=== PATIENT | female | born 1950 | race Caucasian/White ===

== ENCOUNTER 2016-11-05 19:27 | Inpatient (IN) | payer OTHER ==
[~2016-11-05] VITALS: Ht 152.4 cm; Wt 66.5 kg
[~2016-11-05 19:27] MED LIST: METO25TA56 PO
[2016-11-05] MEDS ORDERED: FUROSEMIDE 40 MG/4 ML VIAL IV STA (20:06)
--- NOTE | 2016-11-05 20:13 | EMERGENCY ROOM VISIT NOTE ---
History Report prepared by Barb: Virgil Herrera Under the Supervision of: Dr. Angela Walker M.D. First contact with patient: 19:50 Chief Complaint: SHORTNESS OF BREATH Stated Complaint: SOB History of Present Illness The patient is a 66 year old female who presents to the Emergency Room with complaints of fluid building up in her abdomen and chest that began one week prior to arrival. She also complains of difficulty breathing secondary to her build up of fluid. The patient states that she would like to have some IV-Lasix , which is what normally works for her when she has experienced this in the past. She noted that she thought she could fill the fluid building up into her neck/throat. The patient has a history of CHF and is on 2 L of Oxygen at home. She denies any vomiting, diarrhea, or recent fevers. Source of History: patient Onset: One week RADIO ANNOUNCER Position: chest Quality: other (Difficulty breathing) Timing: worsening Associated Symptoms: No diarrhea, No fevers, No vomiting Review of Systems See HPI for pertinent positives & negatives. A total of 10 systems reviewed and were otherwise negative. Past Medical & Surgical Medical Problems: (1) chf exac, pulm HTN, EKG changes Family History FH: atrial fibrillation MOTHER FH: stroke MOTHER, Onset:79 Social History Smoking Status: Never Smoker Drug Use: none Marital Status: Housing Status: lives with family Occupation Status: other Current/Historical Medications Scheduled Flecainide (Tambocor), 50 MG PO TID Furosemide (Lasix), 40 MG PO BID Metoprolol Succinate (Metoprolol Succinate ER), 25 MG PO DAILY Oxygen (Oxygen), 2 LITERS NA CONTINOUS Allergies Coded Allergies: No Known Allergies (Unverified , 02/10/14) Physical Exam Vital Signs Date Time Temp Pulse Resp B/P Pulse Ox O2 Delivery O2 Flow Rate FiO2 11/05/16 23:33 73 25 95 Nasal Cannula 3.5 11/05/16 23:28 126/75 11/05/16 23:24 71 11/05/16 23:03 76 28 93 Nasal Cannula 3.5 11/05/16 22:58 101/62 11/05/16 22:38 74 25 95 Nasal Cannula 3.5 11/05/16 22:28 110/79 11/05/16 22:08 75 27 93 Nasal Cannula 3.5 11/05/16 21:59 101/66 11/05/16 21:38 72 27 94 Nasal Cannula 3.5 11/05/16 21:33 72 25 93 Nasal Cannula 3.5 11/05/16 21:29 109/71 11/05/16 21:03 73 27 94 Nasal Cannula 3.5 11/05/16 20:58 113/75 11/05/16 20:33 72 24 93 Nasal Cannula 3.5 11/05/16 20:28 104/71 11/05/16 20:27 72 25 93 Nasal Cannula 3.5 11/05/16 19:58 108/73 11/05/16 19:57 74 24 91 Nasal Cannula 3.0 11/05/16 19:50 94 Nasal Cannula 3.5 11/05/16 19:47 75 11/05/16 19:46 100/71 11/05/16 19:42 91 Nasal Cannula 3.0 11/05/16 19:35 90 Nasal Cannula 2.0 11/05/16 19:35 90 Nasal Cannula 2.0 11/05/16 19:31 36.5 79 20 86 Nasal Cannula 2.0 Physical Exam Vital signs reviewed. General: Chronically ill-appearing, On nasal oxygen. HEENT: No scleral icterus, PERRLA, neck supple. Atraumatic. Cardiovascular: Regular rate and rhythm, no extra sounds. Pulmonary: Breath sounds diminished at the bases bilaterally. Midlung field crackles. Normal work of breathing. Abdomen: Soft, nontender, nondistended, positive bowel sounds. Musculoskeletal: Atraumatic. Mild lower extremity edema. Neurologic: Patient awake alert and oriented x 3, full strength in all 4 extremities. Cranial nerves 2 through 12 grossly intact. Skin: Warm, dry, no rash Medical Decision & Procedures ER Provider Diagnostic Interpretation: X-ray results as stated below per my interpretation and radiologist interpretation. Other radiology results as stated below per my review and radiologist interpretation: SINGLE VIEW CHEST CLINICAL HISTORY: Dyspnea. CHF. FINDINGS: An AP, portable, upright chest radiograph is compared to study dated 01/23/2016 and correlated with chest CT dated 02/13/2014. The examination is degraded by portable technique and patient rotation. The heart appears enlarged and there is atherosclerotic calcification of the thoracic aorta. There is pulmonary vascular congestion. There is a layering right pleural effusion with associated right basilar consolidation. No large left pleural effusion is seen. A large calcified pleural plaque is again noted on the left. No pneumothorax is seen. The skeletal structures are osteopenic. A left shoulder arthroplasty is in place. IMPRESSION: 1. Cardiomegaly with evidence of congestive failure. 2. Moderate right pleural effusion with associated right basilar consolidation. This is similar to several prior examinations and may be chronic. Correlate clinically for evidence of a superimposed infectious or inflammatory pneumonitis. 3. The left lung is grossly clear noting a large calcified pleural plaque. Electronically signed by: Moustapha Sahu M.D. 11/05/2016 8:23 PM Dictated Date/Time: 11/05/2016 8:20 PM Laboratory Results Test 11/05/16 19:50 11/05/16 20:15 11/05/16 23:26 Total Bilirubin 0.5 mg/dl (0.2-1) Direct Bilirubin 0.2 mg/dl (0-0.2) Aspartate Amino Transf (AST/SGOT) 23 U/L (15-37) Alanine Aminotransferase (ALT/SGPT) 27 U/L (12-78) Alkaline Phosphatase 69 U/L (45-117) Total Protein 7.7 gm/dl (6.4-8.2) Albumin 3.1 gm/dl (3.4-5.0) FS-Khi-C-Type Natriuretic Peptide 7125 pg/ml (0-900) Bedside Troponin I 0.010 ng/ml (0-0.045) Laboratory results per my review. Medications Administered Medications (Trade) Dose Ordered Sig/Yannick Route Start Time Stop Time Status Last Admin Dose Admin Furosemide (Lasix Inj) 40 mg NOW STAT IV 11/05/16 20:06 11/05/16 20:10 DC 11/05/16 20:20 40 MG ECG Indication: SOB/dyspnea Rate (beats per minute): 76 Rhythm: normal sinus Findings: RBBB (Incomplete), T-wave inversion (Diffuse), other (RAD) Comparison ECG Date: 01/23/2016 Change: no significant change ED Course 2003: Past medical records reviewed. The patient was evaluated in room A12. A complete history and physical examination was performed. 2005: Ordered Furosemide 40 mg IV. 9: I reevaluated the patient at this time, she is still experiencing her breathing difficulties. 2: I discussed the case with Dr. Marr [facility] Hospitalist at this time , he will evaluate the patient for further treatment. Medical Decision The patient's history was concerning for respiratory difficulties. Differential diagnosis: Etiologies such as infections, reactive airway disease, pneumonia, pneumothorax , COPD, CHF, cardiac ischemia, pulmonary embolism, musculoskeletal, gastrointestinal, as well as others were entertained. This patient was evaluated and appeared to be in no significant distress. IV access was obtained and laboratory work was drawn. The patient was placed on the night monitor and found to be in a normal sinus rhythm. She was resting comfortably on nasal cannula oxygen. Patient's chest x-ray is consistent with congestive changes. She was medicated with IV Lasix 40 mg. Given the patient' s cardiac history and congestive failure with increased O2 requirement, she was evaluated by the hospitalist service for further management. Patient and her are aware of the plan and agree. Consults Time Called: [phone] Consulting Physician: Dr. Justa FLORES Hospitalist Returned Call: [phone] I discussed the case with Dr. Justa FL[facility] at this time, he will evaluate the patient for further treatment. Impression Primary Impression: Congestive heart failure Additional Impression: Hypoxia Scribe Attestation The scribe's documentation has been prepared under my direction and personally reviewed by me in its entirety. I confirm that the note above accurately reflects all work, treatment, procedures, and medical decision making performed by me. Departure Information Dispostion Being Evaluated By Hospitalist Referrals No Doctor, Assigned (PCP) Patient Instructions My [facility] Problem Qualifiers
[2016-11-05 20:16] LABS: BASO % 0.6 %; BASO ABS # 0.04 K/uL (0-0.2); COMPLETE YES; EOS % 1.3 %; IG% 0.3 %; LYMPH % 14.7 %; LYMPH ABS # 0.99 K/uL (1.2-3.4); MEAN CELL VOLUME 96.1 fL (80-100); MEAN CORPUSCULAR HEMOGLOBIN 32.5 pg (25-34); MEAN CORPUSCULAR HGB CONC 33.8 g/dl (32-36); MEAN PLATELET VOLUME 9.6 fL (7.4-10.4); NEUT % 72.1 %; PLATELET COUNT 224 K/uL (130-400); RED BLOOD COUNT 4.06 M/uL (4.2-5.4); WHITE BLOOD COUNT 6.75 K/uL (4.8-10.8)
[2016-11-05 20:23] LABS: BUN/CREATININE RATIO 18.3 (10-20); CALCIUM 8.3 mg/dl (8.5-10.1); CREATININE 1.4 mg/dl (0.60-1.20); MAGNESIUM 2.3 mg/dl (1.8-2.4); POTASSIUM 4.4 mmol/L (3.5-5.1)
--- NOTE | 2016-11-05 20:25 | DIAGNOSTIC IMAGING REPORT ---
SINGLE VIEW CHEST CLINICAL HISTORY: Dyspnea. CHF. FINDINGS: An AP, portable, upright chest radiograph is compared to study dated 01/23/2016 and correlated with chest CT dated 02/13/2014. The examination is degraded by portable technique and patient rotation. The heart appears enlarged and there is atherosclerotic calcification of the thoracic aorta. There is pulmonary vascular congestion. There is a layering right pleural effusion with associated right basilar consolidation. No large left pleural effusion is seen. A large calcified pleural plaque is again noted on the left. No pneumothorax is seen. The skeletal structures are osteopenic. A left shoulder arthroplasty is in place. IMPRESSION: 1. Cardiomegaly with evidence of congestive failure. 2. Moderate right pleural effusion with associated right basilar consolidation. This is similar to several prior examinations and may be chronic. Correlate clinically for evidence of a superimposed infectious or inflammatory pneumonitis. 3. The left lung is grossly clear noting a large calcified pleural plaque. Electronically signed by: Moustapha Sahu M.D. 11/05/2016 8:23 PM Dictated Date/Time: 11/05/2016 8:20 PM
[2016-11-05 20:28] LABS: CKMB/CK RATIO 3.2 (0-3.0)
[2016-11-05 20:33] LABS: POINT OF CARE TROPONIN I 0.01 ng/ml (0-0.045)
[2016-11-06] VITALS (7 sets, daily range): BP systolic 93–106; BP diastolic 55–71; PULSE 66–76; TEMP 36.4–36.8; O2SAT 91–97; Ht 152.4 cm; Wt 66.5 kg
[2016-11-06] MEDS ORDERED: ZOLPIDEM TARTRATE 5 MG TAB PO PRN ×2 (01:15→01:30)
[2016-11-06] MEDS ORDERED: NITROGLYCERIN 0.4 MG SL PER TAB CHARGE SL PRN (01:15)
[2016-11-06] MEDS ORDERED: ACETAMINOPHEN 325 MG TAB PO PRN ×2 (01:15→01:30)
[2016-11-06] MEDS ORDERED: FLECAINIDE ACETATE 100 MG TAB PO STA (01:28)
[2016-11-06] MEDS ORDERED: MoRPHine SULFATE 4 MG/ML 1 ML CARP\\VIAL IV PRN (01:30)
[2016-11-06] MEDS ORDERED: PROMETHAZINE HCL INJ 12.5 MG in SODIUM CHLORIDE 0.9% 50ML 50 ML IV PRN (01:30)
[2016-11-06] MEDS ORDERED: MoRPHine SULFATE 2 MG/ML CARP IV PRN (01:30)
[2016-11-06] MEDS ORDERED: DiphenhydrAMINE HCL 50 MG/ML VIAL IV PRN (01:30)
[2016-11-06] MEDS ORDERED: LORAZEPAM 2 MG/ML 1 ML VIAL IV PRN (01:30)
[2016-11-06] MEDS ORDERED: MAGNESIUM HYDROXIDE SUSP 30 ML UDC PO PRN (01:30)
[2016-11-06] MEDS ORDERED: ONDANSETRON INJ 2 MG/ML 2 ML VIAL IV PRN ×2 (01:30)
[2016-11-06] MEDS ORDERED: ALUMINUM/MAGNESIUM/SIMETH (MAALOX MAX) 30 ML UDC PO PRN (01:30)
[2016-11-06] MEDS ORDERED: BISACODYL 10 MG SUPP PR PRN (01:30)
[2016-11-06 02:07] LABS: CKMB/CK RATIO 3.4 (0-3.0)
--- NOTE | 2016-11-06 04:55 | History and Physical ---
History & Physical Date & Time of Service: Nov 06, 2016 at 04:44 Chief Complaint: Chf, Hypoxia Primary Care Physician: Adriana Saini M.D. History of Present Illness Source: patient, spouse The patient is a 66-year-old female who presents to the emergency department with complaint of fluid building up in her legs and chest, with shortness of breath, that began 1 week prior to arrival. She reports that IV Lasix usually works for her, and requested that in the ED upon arrival. She does have a history of CHF, and is chronically on 2 L of oxygen at home. She denies any recent dietary change such as increased sodium. Family History FH: atrial fibrillation MOTHER FH: stroke MOTHER, Onset:79 Social History Smoking Status: Never Smoker Drug Use: none Marital Status: Housing status: lives with family Occupational Status: retired, other Multi-Drug Resistant Organisms History of MDRO: No Allergies Coded Allergies: No Known Allergies (Unverified , 02/10/14) Home Medications Scheduled Flecainide (Tambocor), 50 MG PO TID Furosemide (Lasix), 40 MG PO BID Metoprolol Succinate (Metoprolol Succinate ER), 25 MG PO DAILY Oxygen (Oxygen), 2 LITERS NA CONTINOUS Review of Systems The patient denies chest pain, palpitations, vision change, hearing change, sore throat, fevers, chills, sweats, weight change, fatigue, nausea, vomiting, abdominal pain, pelvic pain, blood in urine or stool, dysuria, urinary frequency or urgency, lightheadedness, dizziness, headache, memory loss, rash, abnormal bruising or bleeding, imbalance, focal or generalized weakness, arthralgias or myalgias, back or neck pain, night sweats, or allergy symptoms. The review of systems is otherwise negative other than for that already noted above, and at least 10 systems have been reviewed. Physical Exam Vital Signs Date Time Temp Pulse Resp B/P Pulse Ox O2 Delivery O2 Flow Rate FiO2 11/06/16 04:06 Nasal Cannula 2.0 11/06/16 03:50 36.7 66 18 93/55 97 Nasal Cannula 2.5 11/06/16 01:00 Nasal Cannula 2.0 11/06/16 00:54 36.4 76 20 98/70 92 Nasal Cannula 2.0 11/06/16 00:03 70 21 98 Nasal Cannula 3.5 11/05/16 23:58 111/86 11/05/16 23:33 73 25 95 Nasal Cannula 3.5 11/05/16 23:28 126/75 11/05/16 23:24 71 11/05/16 23:03 76 28 93 Nasal Cannula 3.5 11/05/16 22:58 101/62 11/05/16 22:38 74 25 95 Nasal Cannula 3.5 11/05/16 22:28 110/79 11/05/16 22:08 75 27 93 Nasal Cannula 3.5 11/05/16 21:59 101/66 11/05/16 21:38 72 27 94 Nasal Cannula 3.5 11/05/16 21:33 72 25 93 Nasal Cannula 3.5 11/05/16 21:29 109/71 11/05/16 21:03 73 27 94 Nasal Cannula 3.5 11/05/16 20:58 113/75 11/05/16 20:33 72 24 93 Nasal Cannula 3.5 11/05/16 20:28 104/71 11/05/16 20:27 72 25 93 Nasal Cannula 3.5 11/05/16 19:58 108/73 11/05/16 19:57 74 24 91 Nasal Cannula 3.0 11/05/16 19:50 94 Nasal Cannula 3.5 11/05/16 19:47 75 11/05/16 19:46 100/71 11/05/16 19:42 91 Nasal Cannula 3.0 11/05/16 19:35 90 Nasal Cannula 2.0 11/05/16 19:35 90 Nasal Cannula 2.0 11/05/16 19:31 36.5 79 20 86 Nasal Cannula 2.0 The patient is awake, well-developed and adequately nourished, alert and oriented 3, normocephalic and atraumatic, lying in bed and in no acute distress. HEENT--PERRL, EOMI, mucous membranes moist, and oropharynx normal. Neck--supple, no JVD or bruits, thyroid normal, trachea midline, no adenopathy. Heart--normal S1 and S2, no extra beats, no murmurs, rubs or gallops. Lungs--crackles at the bases to one third up bilaterally, no respiratory distress, no accessory muscle use. Abdomen--normal bowel sounds and soft, nontender and nondistended, no hernias or masses, no organomegaly. Extremities--no cyanosis, clubbing. There is bilateral 2-3+ pitting edema. There are good distal pulses b/l. Dermatologic--normal skin turgor, normal color, warm and dry, no abnormal lymph nodes, no rash. Neurologic--cranial nerves II through XII grossly intact, motor and sensory examination normal. Rheumatologic--normal range of motion, nontender, muscles and joints. Psychiatric--normal affect. Diagnostics Laboratory Results Results Past 24 Hours Test 11/05/16 19:50 11/05/16 20:15 11/05/16 23:26 11/06/16 01:24 Range/Units White Blood Count 6.75 4.8-10.8 K/uL Red Blood Count 4.06 4.2-5.4 M/uL Hemoglobin 13.2 12.0-16.0 g/dL Hematocrit 39.0 37-47 % Mean Corpuscular Volume 96.1 80-100 fL Mean Corpuscular Hemoglobin 32.5 25-34 pg Mean Corpuscular Hemoglobin Concent 33.8 32-36 g/dl Platelet Count 224 130-400 K/uL Mean Platelet Volume 9.6 7.4-10.4 fL Neutrophils (%) (Auto) 72.1 % Lymphocytes (%) (Auto) 14.7 % Monocytes (%) (Auto) 11.0 % Eosinophils (%) (Auto) 1.3 % Basophils (%) (Auto) 0.6 % Neutrophils # (Auto) 4.87 1.4-6.5 K/uL Lymphocytes # (Auto) 0.99 1.2-3.4 K/uL Monocytes # (Auto) 0.74 0.11-0.59 K/uL Eosinophils # (Auto) 0.09 0-0.5 K/uL Basophils # (Auto) 0.04 0-0.2 K/uL RDW Standard Deviation 53.2 36.4-46.3 fL RDW Coefficient of Variation 15.1 11.5-14.5 % Immature Granulocyte % (Auto) 0.3 % Immature Granulocyte # (Auto) 0.02 0.00-0.02 K/uL Sodium Level 139 136-145 mmol/L Potassium Level 4.4 3.5-5.1 mmol/L Chloride Level 98 98-107 mmol/L Carbon Dioxide Level 31 21-32 mmol/L Anion Gap 10.0 3-11 mmol/L Blood Urea Nitrogen 26 7-18 mg/dl Creatinine 1.40 0.60-1.20 mg/dl Est Creatinine Clear Calc Drug Dose 35.3 ml/min Estimated GFR () 45.9 Estimated GFR (Non- 39.6 BUN/Creatinine Ratio 18.3 10-20 Random Glucose 111 70-99 mg/dl Calcium Level 8.3 8.5-10.1 mg/dl Magnesium Level 2.3 1.8-2.4 mg/dl Total Bilirubin 0.5 0.2-1 mg/dl Direct Bilirubin 0.2 0-0.2 mg/dl Aspartate Amino Transf (AST/SGOT) 23 15-37 U/L Alanine Aminotransferase (ALT/SGPT) 27 12-78 U/L Alkaline Phosphatase 69 45-117 U/L Total Creatine Kinase 41 35 26-192 U/L Creatine Kinase MB 1.3 1.2 0.5-3.6 ng/ml Creatine Kinase MB Ratio 3.2 3.4 0-3.0 Total Protein 7.7 6.4-8.2 gm/dl Albumin 3.1 3.4-5.0 gm/dl Bedside Troponin I 0.010 0.010 0-0.045 ng/ml WG-Pit-O-Type Natriuretic Peptide 7125 0-900 pg/ml Troponin I < 0.015 0-0.045 ng/ml Diagnostic Radiology Patient Name: MIRIAN MCRAE Unit Number: [id number] Dictated: 11/05/162019 Transcribed: 11/05/162019 EV Printed Date/Time: [~ rep prt dt]/[~ rep prt tm] [~ rep ct labl] - [~ rep ct ivnm] [facility] [place] [address] Dictated: 11/05/162019 Transcribed: 11/05/162019 EV Printed Date/Time: [~ rep prt dt]/[~ rep prt tm] [~ rep ct labl] - [~ rep ct ivnm] CLINICAL HISTORY: Dyspnea. CHF. FINDINGS: An AP, portable, upright chest radiograph is compared to study dated 01/23/2016 and correlated with chest CT dated 02/13/2014. The examination is degraded by portable technique and patient rotation. The heart appears enlarged and there is atherosclerotic calcification of the thoracic aorta. There is pulmonary vascular congestion. There is a layering right pleural effusion with associated right basilar consolidation. No large left pleural effusion is seen. A large calcified pleural plaque is again noted on the left. No pneumothorax is seen. The skeletal structures are osteopenic. A left shoulder arthroplasty is in place. IMPRESSION: 1. Cardiomegaly with evidence of congestive failure. 2. Moderate right pleural effusion with associated right basilar consolidation. This is similar to several prior examinations and may be chronic. Correlate clinically for evidence of a superimposed infectious or inflammatory pneumonitis. 3. The left lung is grossly clear noting a large calcified pleural plaque. Electronically signed by: Moustapha Sahu M.D. 11/05/2016 8:23 PM Dictated Date/Time: 11/05/2016 8:20 PM The status of this report is Signed. Draft = Not yet reviewed or approved by Radiologist. Signed = Reviewed and approved by Radiologist. <AttendingPhy></AttendingPhy> <FamilyPhy>No Doctor, Assigned</FamilyPhy> < PrimaryPhy>No Doctor, Assigned</PrimaryPhy> <UnitNumber>[id number]</UnitNumber> <VisitNumber>[id number]</VisitNumber> <PatientName>MIRIAN MCRAE</ PatientName> <DateOfBirth>1950</DateOfBirth> <Location>[facility]</Location> < ServiceDate>11/05/16</ServiceDate> <MNE>ESINDI</MNE> <OrderingPhy>Angela Walker M.D.</OrderingPhy> <OrderingPhyMNE>f rep ord dr yi</OrderingPhyMNE> < DictatingPhyMNE>f rep dict dr yi</DictatingPhyMNE> <CCListMNE>f rep ct kassidy</ CCListMNE> <AdmittingPhyMNE>f pt admit dr yi</AdmittingPhyMNE> <AttendingPhyMNE >f pt attend dr yi</AttendingPhyMNE> <ConsultingPhyMNE>f pt consult dr yi</ConsultingPhyMNE> <FamilyPhyMNE>f pt fam dr yi</FamilyPhyMNE> <OtherPhyMNE>f pt other dr yi</OtherPhyMNE> < PrimaryPhyMNE>f pt prim care dr yi</PrimaryPhyMNE> <ReferringPhyMNE>f pt referring dr yi</ReferringPhyMNE> EKG EKG shows normal sinus rhythm at [address], [address] depression T-wave inversions in leads 2, 3 , aVF and V3 similar to 01/23/2016, with worsening ST depression and T-wave inversions in leads V2 and V4 through V6 Impression Assessment and Plan Acute exacerbation of CHF, with probable ischemic origin due to new EKG changes. Patient will be admitted to the telemetry unit, and is already received Lasix 40 mg IV in the emergency department. She was reluctant to stay in the hospital, but does agree to stay until she can be seen by Dr. Garcia in the a.m. We'll follow serial cardiac enzymes, cardiac rhythm monitoring, and repeat 2-D echocardiogram with Dopplers. Continue flecainide 50 mg by mouth 3 times a day, metoprolol succinate ER 25 mg by mouth daily and furosemide 40 mg by mouth twice a day. We'll follow serial basic metabolic panel and magnesium levels. Level of Care Telemetry Advanced Directives Existing Advance Directive: Yes Existing Living Will: Yes Existing Power of Catapult And Arresting Gear Officer: Yes Resuscitation Status FULL RESUSCITATION VTE Prophylaxis VTE Risk Assessment Done? Y/N: Yes Risk Level: Moderate
[2016-11-06] MEDS: METOPROLOL SUCC 25MG EXT REL TAB PO SCH (08:30)
[2016-11-06] MEDS: FUROSEMIDE 40 MG TAB PO SCH ×2 (08:31→15:40)
[2016-11-06] MEDS: DOCUSATE SODIUM 100 MG CAP PO SCH ×2 (08:31→19:29)
[2016-11-06] MEDS: FLECAINIDE ACETATE 100 MG TAB PO SCH ×3 (08:31→19:30)
[2016-11-06 10:14] LABS: CKMB/CK RATIO 3.6 (0-3.0)
--- NOTE | 2016-11-06 11:47 | Cardiology Consultation ---
Cardiology Consultation Date of Consultation: Nov 06, 2016. Requesting Physician: Dr. Marr Reason for Consultation: SOB Pt evaluation today including: conversation w/ patient, physical exam, lab review, review of studies, review of inpatient medication list, conversation w/ attending History of Present Illness This is a very pleasant 63-year-old female with a history significant for severe pulmonary hypertension, chronic right pleural effusion, and a pulmonary nodule. She is taken care of Dr. Oliva (pulmonology) for her pulmonary issues. She has been on supplemental oxygen for several years and uses 2 liters per nasal cannula. She had a right sided cardiac catheterization performed at [facility] on 01/25/2016, this showed severe pulmonary hypertension with suprasystemic pulmonary artery pressures and a normal right atrial pressure. Her symptoms had been stable for quite some time . However more recently she has had progressive edema and shortness of breath (over several weeks) and although she tried to take extra Lasix her symptoms worsened and she came to the emergency room last evening and was admitted. She denies angina or any type of chest pain with any exertion or at rest, she does describe a chest fullness which sounds like it is related to her shortness of breath. She fell and injured her left shoulder and underwent Left Shoulder Hemiarthroplasty on 02/12/2013. Post operatively she had significant blood loss as well as tachycardia. Her tachycardia in retrospect has been present for years , it was a regular tachycardia at a rate of 140 BPM on telemetry (while under stress) and slowed but did not terminate with adenosine. It did terminate abruptly on its own however (after addition of diltiazem) after about 12 hours. That may or may not have been related to the diltiazem, she had another episode subsequently lasting about 3 1/2 hours with abrupt onset and termination as before. This does replicate her clinical arrhythmia prior to admission. She was aware of the arrhythmia but did not suffer hemodynamic consequence. She is maintained on flecainide for the arrhythmia, she has not had much difficulty with it (at least symptomatically) recently. Past Medical/Surgical History Severe Pulmonary HTN SVT controlled with Flecanide Granulomatous lung disease, Yarbrough's lung? Chronic Right pleural effusion- 2011 - Thoracentesis in 2011 x1 Left shoulder injury Family History FH: atrial fibrillation MOTHER FH: stroke MOTHER, Onset:79 Social History Smoking Status: Never Smoker History of Alcohol Use: No Review of Systems Constitutional: No fever, No weakness, No weight loss Respiratory: + dyspnea on exertion, + see HPI, + shortness of breath Cardiac: + edema, No PND, No chest pain, No orthopnea, No palpitations Abdomen: No GI bleeding, No diarrhea, No nausea, No pain, No vomiting Female : No problem reported Neurologic: No balance problems, No numbness/tingling, No paralysis, No weakness Heme: No abnormal bleeding/bruising, No clotting problems Endo: No fatigue Skin: No problem reported All Other Systems: Reviewed and Negative Allergies Coded Allergies: No Known Allergies (Unverified , 02/10/14) Medications Current Inpatient Medications Medications (Trade) Dose Ordered Sig/Yannick Route Start Time Stop Time Status Last Admin Dose Admin Zolpidem Tartrate (Ambien Tab) 5 mg HSZ PRN PO 11/06/16 01:15 12/06/16 01:14 Nitroglycerin (Nitrostat Tab) 0.4 mg UD PRN SL 11/06/16 01:15 12/06/16 01:14 Flecainide Acetate (Tambocor Tab) 50 mg TID PO 11/06/16 09:00 12/06/16 08:59 11/06/16 08:31 50 MG Furosemide (Lasix tab) 40 mg BID17 PO 11/06/16 09:00 12/06/16 08:59 11/06/16 08:31 40 MG Metoprolol Succinate (Toprol Xl Tab) 25 mg DAILY PO 11/06/16 09:00 12/06/16 08:59 11/06/16 08:30 25 MG Ondansetron HCl (Zofran Inj) 4 mg Q6H PRN IV 11/06/16 01:30 12/06/16 01:29 Lorazepam (Ativan Inj) 0.5 mg Q4H PRN IV 11/06/16 01:30 12/06/16 01:29 Acetaminophen (Tylenol Tab) 650 mg Q4H PRN PO 11/06/16 01:30 12/06/16 01:29 Magnesium Hydroxide (Milk Of Magnesia Susp) 30 ml Q6H PRN PO 11/06/16 01:30 12/06/16 01:29 Bisacodyl (Dulcolax Supp) 10 mg DAILY PRN [place] 11/06/16 01:30 12/06/16 01:29 Diphenhydramine HCl (Benadryl Inj) 25 mg Q4H PRN IV 11/06/16 01:30 12/06/16 01:29 Al Hydrox/Mg Hydrox/ Simethicone 15 ml 15 ml Q4H PRN PO 11/06/16 01:30 12/06/16 01:29 Promethazine HCl/ Sodium Chloride (Phenergan Inj/ Nss 50ml) 50.5 ml @ 202 mls/hr Q4H PRN IV 11/06/16 01:30 12/06/16 01:29 Docusate Sodium (coLACE CAP) 100 mg BID PO 11/06/16 09:00 12/06/16 08:59 11/06/16 08:31 100 MG Morphine Sulfate (MoRPHine SULFATE INJ) 2 mg Q2H PRN IV 11/06/16 01:30 11/20/16 01:29 Morphine Sulfate (MoRPHine SULFATE INJ) 4 mg Q2H PRN IV 11/06/16 01:30 11/20/16 01:29 Physical Exam Vital Signs Past 12 Hours Date Time Temp Pulse Resp B/P Pulse Ox O2 Delivery O2 Flow Rate FiO2 11/06/16 08:00 Nasal Cannula 2.0 11/06/16 08:00 36.8 68 18 101/63 91 3.0 11/06/16 04:06 Nasal Cannula 2.0 11/06/16 03:50 36.7 66 18 93/55 97 Nasal Cannula 2.5 11/06/16 01:00 Nasal Cannula 2.0 11/06/16 00:54 36.4 76 20 98/70 92 Nasal Cannula 2.0 11/06/16 00:03 70 21 98 Nasal Cannula 3.5 11/05/16 23:58 111/86 11/05/16 23:33 73 25 95 Nasal Cannula 3.5 11/05/16 23:28 126/75 11/05/16 23:24 71 Constitutional: General Apperance: heathly-appearing Level of Distress: mild distress Psychiatric: Mental Status: active & alert Head: normocephalic Eyes: EOM: EOMI ENMT: normal ENT inspection, hearing grossly normal Neck: supple, no masses Lungs: Respiratory effort: good air movement Auscultation: breath sounds normal, no wheezing Cardiovascular: Heart Auscultation: RRR, no murmurs, no rubs, no gallops, pertinent finding (Prominent S2) Peripheral Pulses: Bruits: none appreciated Abdomen: Bowel Sounds: normal Inspection & Palpation: soft, no tenderness, guarding & rebound, no masses Musculoskeletal: normal strength (5/5 throughout) Extremities: edema (+2 bilateral) Neurologic: Cranial Nerves: grossly intact Sensation: grossly intact Data Laboratory Results: Last 24 Hours Test 11/05/16 19:50 11/05/16 20:15 11/05/16 23:26 11/06/16 01:24 White Blood Count 6.75 K/uL Red Blood Count 4.06 M/uL Hemoglobin 13.2 g/dL Hematocrit 39.0 % Mean Corpuscular Volume 96.1 fL Mean Corpuscular Hemoglobin 32.5 pg Mean Corpuscular Hemoglobin Concent 33.8 g/dl Platelet Count 224 K/uL Mean Platelet Volume 9.6 fL Neutrophils (%) (Auto) 72.1 % Lymphocytes (%) (Auto) 14.7 % Monocytes (%) (Auto) 11.0 % Eosinophils (%) (Auto) 1.3 % Basophils (%) (Auto) 0.6 % Neutrophils # (Auto) 4.87 K/uL Lymphocytes # (Auto) 0.99 K/uL Monocytes # (Auto) 0.74 K/uL Eosinophils # (Auto) 0.09 K/uL Basophils # (Auto) 0.04 K/uL RDW Standard Deviation 53.2 fL RDW Coefficient of Variation 15.1 % Immature Granulocyte % (Auto) 0.3 % Immature Granulocyte # (Auto) 0.02 K/uL Sodium Level 139 mmol/L Potassium Level 4.4 mmol/L Chloride Level 98 mmol/L Carbon Dioxide Level 31 mmol/L Anion Gap 10.0 mmol/L Blood Urea Nitrogen 26 mg/dl Creatinine 1.40 mg/dl Est Creatinine Clear Calc Drug Dose 35.3 ml/min Estimated GFR () 45.9 Estimated GFR (Non- 39.6 BUN/Creatinine Ratio 18.3 Random Glucose 111 mg/dl Calcium Level 8.3 mg/dl Magnesium Level 2.3 mg/dl Total Bilirubin 0.5 mg/dl Direct Bilirubin 0.2 mg/dl Aspartate Amino Transf (AST/SGOT) 23 U/L Alanine Aminotransferase (ALT/SGPT) 27 U/L Alkaline Phosphatase 69 U/L Total Creatine Kinase 41 U/L 35 U/L Creatine Kinase MB 1.3 ng/ml 1.2 ng/ml Creatine Kinase MB Ratio 3.2 3.4 Total Protein 7.7 gm/dl Albumin 3.1 gm/dl Bedside Troponin I 0.010 ng/ml 0.010 ng/ml [id number] Natriuretic Peptide 7125 pg/ml Troponin I < 0.015 ng/ml Test 11/06/16 09:16 Total Creatine Kinase 39 U/L Creatine Kinase MB 1.4 ng/ml Creatine Kinase MB Ratio 3.6 Troponin I < 0.015 ng/ml An electrocardiogram today shows sinus rhythm at 75 bpm with right axis deviation consistent with right ventricular hypertrophy and inferior as well as anterior T-wave inversion. This is unchanged from a year ago. An echocardiogram done in 2013 shows low normal left ventricular function, another echocardiogram done 11/19/2015 showed mild left ventricular dysfunction with an estimated ejection fraction of 45-50%. Findings consistent with right ventricular volume and pressure overload as well as severe pulmonary hypertension. Telemetry reviewed: Sinus rhythm, no arrhythmia Assessment & Plan #1. Shortness of breath: The primary reason for her shortness of breath is her pulmonary hypertension, but I cannot exclude a contribution of heart failure. In the past she has not had a lot of findings of left sided failure but she has not had an echocardiogram for almost a year. She is hypoxic with exercise but that may be her underlying lung disease. I would continue to diurese and that may help with her breathing. #2. Edema: She has primarily right sided heart failure, however she has had an exacerbation and I would continue to diuresis. We may run into difficulties with an elevated creatinine but I would still try to do so for now. We probably can't do too much more. #3. Severe pulmonary hypertension: There is probably little we can do other than supportive care. #4. Supraventricular arrhythmia: She remains on flecainide at least symptomatically this appears to be under control. Has not had any further episodes on telemetry. I would continue with the flecainide. Thank you for allowing me to participate in her care.
--- NOTE | 2016-11-06 11:50 | Hospitalist Progress Note ---
Hospitalist Progress Note Date of Service Nov 06, 2016. Subjective Pt evaluation today including: conversation w/ patient, physical exam, chart review, lab review, review of studies Pain: None PO Intake: Good Voiding: no voiding problems Pt was seen and examined this morning. She has no acute complaints. Reports swelling in her legs has decreased, and that her breathing is at baseline. She denies feeling sob with ambulation moreso than at her baseline. Chronically wears 2 L O2, and is currently on this without any sob/dyspnea. She received 1 dose IV lasix in the ED last night and was placed back on her home medication dose of 40 mg PO BID this morning. She is refusing invasive testing at this time , including an Echo (she understands this is an ultrasound and noninvasive), and would like to speak with Dr. Garcia. Her serial cardiac enzymes have all been negative and she would like to leave today. Constitutional: No chills, No fever, No sweats ENT: No nasal symptoms, No sore throat, No tinnitus Respiratory: No cough, No dyspnea at rest, No shortness of breath, No sputum , No wheezing Cardiovascular: No chest pain, No palpitations Abdomen: No constipation, No diarrhea, No nausea, No pain, No see HPI, No vomiting Musculoskeletal: + swelling, No joint pain, No muscle pain Female : No dysuria Neurologic: No numbness/tingling, No weakness Skin: No rash Objective Vital Signs Date Time Temp Pulse Resp B/P Pulse Ox O2 Delivery O2 Flow Rate FiO2 11/06/16 04:06 Nasal Cannula 2.0 11/06/16 03:50 36.7 66 18 93/55 97 Nasal Cannula 2.5 11/06/16 01:00 Nasal Cannula 2.0 11/06/16 00:54 36.4 76 20 98/70 92 Nasal Cannula 2.0 11/06/16 00:03 70 21 98 Nasal Cannula 3.5 11/05/16 23:58 111/86 11/05/16 23:33 73 25 95 Nasal Cannula 3.5 11/05/16 23:28 126/75 11/05/16 23:24 71 11/05/16 23:03 76 28 93 Nasal Cannula 3.5 11/05/16 22:58 101/62 11/05/16 22:38 74 25 95 Nasal Cannula 3.5 11/05/16 22:28 110/79 11/05/16 22:08 75 27 93 Nasal Cannula 3.5 11/05/16 21:59 101/66 11/05/16 21:38 72 27 94 Nasal Cannula 3.5 11/05/16 21:33 72 25 93 Nasal Cannula 3.5 11/05/16 21:29 109/71 11/05/16 21:03 73 27 94 Nasal Cannula 3.5 11/05/16 20:58 113/75 11/05/16 20:33 72 24 93 Nasal Cannula 3.5 11/05/16 20:28 104/71 11/05/16 20:27 72 25 93 Nasal Cannula 3.5 11/05/16 19:58 108/73 11/05/16 19:57 74 24 91 Nasal Cannula 3.0 11/05/16 19:50 94 Nasal Cannula 3.5 11/05/16 19:47 75 11/05/16 19:46 100/71 11/05/16 19:42 91 Nasal Cannula 3.0 11/05/16 19:35 90 Nasal Cannula 2.0 11/05/16 19:35 90 Nasal Cannula 2.0 11/05/16 19:31 36.5 79 20 86 Nasal Cannula 2.0 Physical Exam General Appearance: WD/WN, no apparent distress Eyes: PERRL, EOMI ENT: hearing grossly normal, pharynx normal Neck: + JVD Respiratory/Chest: chest non-tender, no respiratory distress, + pertinent finding (wearing 2 L O2 via NC, + diminished breath sounds a R base. ) Cardiovascular: regular rate, rhythm, no murmur, + JVD Abdomen: normal bowel sounds, non tender, soft Extremities: non-tender, no calf tenderness, + pedal edema (+1 pitting edema, up to mid tibial region, equal bilaterally.) Neurologic/Psychiatric: alert, normal mood/affect Skin: normal color, warm/dry Laboratory Results Last 24 Hours Test 11/05/16 19:50 11/05/16 20:15 11/05/16 23:26 11/06/16 01:24 White Blood Count 6.75 K/uL Red Blood Count 4.06 M/uL Hemoglobin 13.2 g/dL Hematocrit 39.0 % Mean Corpuscular Volume 96.1 fL Mean Corpuscular Hemoglobin 32.5 pg Mean Corpuscular Hemoglobin Concent 33.8 g/dl Platelet Count 224 K/uL Mean Platelet Volume 9.6 fL Neutrophils (%) (Auto) 72.1 % Lymphocytes (%) (Auto) 14.7 % Monocytes (%) (Auto) 11.0 % Eosinophils (%) (Auto) 1.3 % Basophils (%) (Auto) 0.6 % Neutrophils # (Auto) 4.87 K/uL Lymphocytes # (Auto) 0.99 K/uL Monocytes # (Auto) 0.74 K/uL Eosinophils # (Auto) 0.09 K/uL Basophils # (Auto) 0.04 K/uL RDW Standard Deviation 53.2 fL RDW Coefficient of Variation 15.1 % Immature Granulocyte % (Auto) 0.3 % Immature Granulocyte # (Auto) 0.02 K/uL Sodium Level 139 mmol/L Potassium Level 4.4 mmol/L Chloride Level 98 mmol/L Carbon Dioxide Level 31 mmol/L Anion Gap 10.0 mmol/L Blood Urea Nitrogen 26 mg/dl Creatinine 1.40 mg/dl Est Creatinine Clear Calc Drug Dose 35.3 ml/min Estimated GFR () 45.9 Estimated GFR (Non- 39.6 BUN/Creatinine Ratio 18.3 Random Glucose 111 mg/dl Calcium Level 8.3 mg/dl Magnesium Level 2.3 mg/dl Total Bilirubin 0.5 mg/dl Direct Bilirubin 0.2 mg/dl Aspartate Amino Transf (AST/SGOT) 23 U/L Alanine Aminotransferase (ALT/SGPT) 27 U/L Alkaline Phosphatase 69 U/L Total Creatine Kinase 41 U/L 35 U/L Creatine Kinase MB 1.3 ng/ml 1.2 ng/ml Creatine Kinase MB Ratio 3.2 3.4 Total Protein 7.7 gm/dl Albumin 3.1 gm/dl Bedside Troponin I 0.010 ng/ml 0.010 ng/ml [id number] Natriuretic Peptide 7125 pg/ml Troponin I < 0.015 ng/ml Assessment and Plan This is a 66 yo F with PMHx of CHF, with complaint of fluid building up in her legs and chest, with shortness of breath, that began 1 week prior to arrival Acute on Chronic CHF exacerbation, unknown if systolic or diastolic - NT-Pro-BNP was elevated at 7125 at time of admission last evening - Recieved 40 mg IV lasix in the ED, continue with 40 mg BID PO - ECHO ordered, although the patient is requesting to see Dr. Cortes prior to this as she does not want to go through invasive procedures. Discussion was held regarding echo being an ultrasound, but she is still hesitant to have this done, and is requesting to leave since her breathing and swelling has improved back to her baseline. - Troponin and CKMB x 3 sets all negative - Strict I/Os, out 900mL overnight - Daily weights - Continue flecainide 50 mg TID - Cont metoprolol succinate ER 25 mg - Dopplers BLE pending - CXR 11/05/16 IMPRESSION: 1. Cardiomegaly with evidence of congestive failure. 2. Moderate right pleural effusion with associated right basilar consolidation. This is similar to several prior examinations and may be chronic. Correlate clinically for evidence of a superimposed infectious or inflammatory pneumonitis. 3. The left lung is grossly clear noting a large calcified pleural plaque. ELI - Secondary to volume overload- likely will improve with gentle diuresis - Baseline Cr. =0.9 in Sep 2016 - Received Lasix 40 mg IV last night - Cont Lasix 40 mg PO BID R pleural effusion with basilar consolidation - Pleural effusion likely to improve with diuresis, monitor - can consider repeat CXR if the patient gets worse - her sx are improved at this point. CODE STATUS: FULL CODE Disposition: From home, likely today or tomorrow depending on cardiology recommendations/ patient decision on workup.
[2016-11-06] MEDS ORDERED: PERFLUTREN LIPID MICROSPHERE (DEFINITY) IV ONE (14:14)
[2016-11-06 18:16] LABS: BLOOD UREA NITROGEN 28 mg/dl (7-18); BUN/CREATININE RATIO 23.3 (10-20); CALCIUM 8.7 mg/dl (8.5-10.1); CARBON DIOXIDE 31 mmol/L (21-32); CHLORIDE 96 mmol/L (98-107); GLUCOSE 163 mg/dl (70-99); POTASSIUM 4.5 mmol/L (3.5-5.1); SODIUM 139 mmol/L (136-145)
[2016-11-06 18:20] LABS: CKMB/CK RATIO 2.6 (0-3.0)
[2016-11-07 03:32] VITALS: BP 91/55; PULSE 62; TEMP 36.7; O2SAT 99
[2016-11-07 06:12] LABS: BASO % 0.7 %; BASO ABS # 0.04 K/uL (0-0.2); COMPLETE YES; EOS % 2.3 %; HEMATOCRIT 36.7 % (37-47); IG% 0.4 %; LYMPH % 18.5 %; LYMPH ABS # 1.04 K/uL (1.2-3.4); MEAN CELL VOLUME 95.1 fL (80-100); MEAN CORPUSCULAR HEMOGLOBIN 31.6 pg (25-34); MEAN CORPUSCULAR HGB CONC 33.2 g/dl (32-36); MEAN PLATELET VOLUME 9.7 fL (7.4-10.4); MONO % 12.7 %; NEUT % 65.4 %; PLATELET COUNT 202 K/uL (130-400); RED BLOOD COUNT 3.86 M/uL (4.2-5.4); WHITE BLOOD COUNT 5.61 K/uL (4.8-10.8)
[2016-11-07 06:24] LABS: INR 1.1 (0.9-1.1); PROTHROMBIN TIME (PATIENT) 12.3 SECONDS (9.0-12.0)
[2016-11-07 07:00] LABS: BUN/CREATININE RATIO 26.6 (10-20); CALCIUM 8.5 mg/dl (8.5-10.1); CREATININE 0.83 mg/dl (0.60-1.20); MAGNESIUM 2.3 mg/dl (1.8-2.4); POTASSIUM 3.8 mmol/L (3.5-5.1)
[2016-11-07 07:57] VITALS: BP 103/66; PULSE 66; TEMP 36.6; O2SAT 90
[2016-11-07] MEDS: METOPROLOL SUCC 25MG EXT REL TAB PO SCH (08:33)
[2016-11-07] MEDS: FLECAINIDE ACETATE 100 MG TAB PO SCH ×2 (08:33→13:56)
[2016-11-07] MEDS: FUROSEMIDE 40 MG TAB PO SCH (08:33)
[2016-11-07] MEDS: DOCUSATE SODIUM 100 MG CAP PO SCH (08:34)
[2016-11-07 11:48] VITALS: BP 96/64; PULSE 85; TEMP 36.3; O2SAT 92
[2016-11-07 12:41] VITALS: BP 96/64; PULSE 85; TEMP 36.3; O2SAT 92
--- NOTE | 2016-11-07 12:49 | Cardiology Follow-Up ---
Subjective Date of Service: Nov 07, 2016. Pt evaluation today including: conversation w/ patient, physical exam, lab review, review of studies, review of inpatient medication list History of Present Illness This is a very pleasant 63-year-old female with a history significant for severe pulmonary hypertension, chronic right pleural effusion, and a pulmonary nodule. She is taken care of Dr. Oliva (pulmonology) for her pulmonary issues. She has been on supplemental oxygen for several years and uses 2 liters per nasal cannula. She had a right sided cardiac catheterization performed at [facility] on 01/25/2016, this showed severe pulmonary hypertension with suprasystemic pulmonary artery pressures and a normal right atrial pressure. Her symptoms had been stable for quite some time . However more recently she has had progressive edema and shortness of breath (over several weeks) and although she tried to take extra Lasix her symptoms worsened and she came to the emergency room last evening and was admitted. She denies angina or any type of chest pain with any exertion or at rest, she does describe a chest fullness which sounds like it is related to her shortness of breath. She fell and injured her left shoulder and underwent Left Shoulder Hemiarthroplasty on 02/12/2013. Post operatively she had significant blood loss as well as tachycardia. Her tachycardia in retrospect has been present for years , it was a regular tachycardia at a rate of 140 BPM on telemetry (while under stress) and slowed but did not terminate with adenosine. It did terminate abruptly on its own however (after addition of diltiazem) after about 12 hours. That may or may not have been related to the diltiazem, she had another episode subsequently lasting about 3 1/2 hours with abrupt onset and termination as before. This does replicate her clinical arrhythmia prior to admission. She was aware of the arrhythmia but did not suffer hemodynamic consequence. She is maintained on flecainide for the arrhythmia, she has not had much difficulty with it (at least symptomatically) recently. Since admission she has been diuresis, she feels very well and feels that she is back to baseline. She notes that her edema is markedly improved. She has no complaints today. Social History Smoking Status: Never Smoker History of Alcohol Use: No Review of Systems Respiratory: No cough, No dyspnea at rest, No shortness of breath, No sputum, No wheezing Cardiac: No chest pain, No palpitations Medications Cardiovascular: Item Value Date Time Simeoncainide Acetate 50 mg 11/06/16 0900 (Tambocor Tab) TID/PO 11/07/16 0833 Furosemide 40 mg 11/06/16 0900 (Lasix tab) BID17/PO 11/07/16 08 Metoprolol 25 mg 11/06/16 0900 Succinate DAILY/PO 11/07/16 08 (Toprol Xl Tab) Objective Vital Signs Past 12 Hours Date Time Temp Pulse Resp B/P Pulse Ox O2 Delivery O2 Flow Rate FiO2 11/07/16 12:00 Nasal Cannula 2.0 11/07/16 11:48 36.3 85 18 96/64 92 Nasal Cannula 3.0 11/07/16 08:00 Nasal Cannula 2.0 11/07/16 07:57 36.6 66 16 103/66 90 Nasal Cannula 3.0 11/07/16 04:00 Nasal Cannula 2.0 11/07/16 03:32 36.7 62 17 91/55 99 Nasal Cannula 2.0 Last Recorded Weight-Kilograms: 66.500 Intake & Output 8-Hour Column 11/06/16 11/07/16 11/07/16 16:00 00:00 08:00 Intake Total 500 ml 500 ml 100 ml Output Total 300 ml 650 ml Balance 500 ml 200 ml -550 ml 24-Hour Column 11/07/16 08:00 Intake Total 1100 ml Output Total 950 ml Balance 150 ml Physical Exam Constitutional: General Apperance: heathly-appearing Level of Distress: mild distress Lungs: Respiratory effort: good air movement Auscultation: breath sounds normal, no wheezing Cardiovascular: Heart Auscultation: RRR, no murmurs, no rubs, no gallops, pertinent finding (Prominent S2) Peripheral Pulses: Bruits: none appreciated Extremities: edema (trace bilateral) Data Laboratory Results: Last 24 Hours Test 11/06/16 17:40 11/07/16 05:00 Sodium Level 139 mmol/L 142 mmol/L Potassium Level 4.5 mmol/L 3.8 mmol/L Chloride Level 96 mmol/L 99 mmol/L Carbon Dioxide Level 31 mmol/L 34 mmol/L Anion Gap 12.0 mmol/L 9.0 mmol/L Blood Urea Nitrogen 28 mg/dl 22 mg/dl Creatinine 1.20 mg/dl 0.83 mg/dl Est Creatinine Clear Calc Drug Dose 40.2 ml/min 58.0 ml/min Estimated GFR () 55.3 86.4 Estimated GFR (Non- 47.7 74.5 BUN/Creatinine Ratio 23.3 26.6 Random Glucose 163 mg/dl 72 mg/dl Calcium Level 8.7 mg/dl 8.5 mg/dl Total Creatine Kinase 34 U/L Creatine Kinase MB 0.9 ng/ml Creatine Kinase MB Ratio 2.6 Troponin I < 0.015 ng/ml White Blood Count 5.61 K/uL Red Blood Count 3.86 M/uL Hemoglobin 12.2 g/dL Hematocrit 36.7 % Mean Corpuscular Volume 95.1 fL Mean Corpuscular Hemoglobin 31.6 pg Mean Corpuscular Hemoglobin Concent 33.2 g/dl Platelet Count 202 K/uL Mean Platelet Volume 9.7 fL Neutrophils (%) (Auto) 65.4 % Lymphocytes (%) (Auto) 18.5 % Monocytes (%) (Auto) 12.7 % Eosinophils (%) (Auto) 2.3 % Basophils (%) (Auto) 0.7 % Neutrophils # (Auto) 3.67 K/uL Lymphocytes # (Auto) 1.04 K/uL Monocytes # (Auto) 0.71 K/uL Eosinophils # (Auto) 0.13 K/uL Basophils # (Auto) 0.04 K/uL RDW Standard Deviation 52.0 fL RDW Coefficient of Variation 15.1 % Immature Granulocyte % (Auto) 0.4 % Immature Granulocyte # (Auto) 0.02 K/uL Prothrombin Time 12.3 SECONDS Prothromb Time International Ratio 1.1 Activated Partial Thromboplast Time 25.4 SECONDS Partial Thromboplastin Ratio 1.0 Magnesium Level 2.3 mg/dl Telemetry reviewed, sinus rhythm with no significant arrhythmia. Assessment and Plan #1. Shortness of breath: The primary reason for her shortness of breath is her pulmonary hypertension, but I cannot exclude a contribution of heart failure. In the past she has not had a lot of findings of left sided failure and although her echocardiogram is not officially read on preliminary review it is not appreciably different than before. She is hypoxic with exercise but that may be her underlying lung disease. I would maintain her fluid status about where it is, she seems to be euhydrated. #2. Edema: She has primarily right sided heart failure, however she has had an exacerbation but corrected fairly quickly. There is not an obvious reason, however I would not change her medications to much based on this event. I would recommend discharging her on the same medications she had, she is to watch her weight closely for the next 3 or 4 days and if it starts to climb we can either add Zaroxolyn to her schedule or just increase her Lasix. She has an appointment with me in November which should be acceptable. #3. Severe pulmonary hypertension: There is probably little we can do other than supportive care. #4. Supraventricular arrhythmia: She remains on flecainide at least symptomatically this appears to be under control. Has not had any further episodes on telemetry. I would continue with the flecainide. Thank you for allowing me to participate in her care.
--- NOTE | 2016-11-07 14:07 | Discharge Instructions ---
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 Instructions / Follow-Up Instructions / Follow-Up You were admitted with hypoxia ( low oxygen) which was found to be due to volume overload. This was caused by an acute exacerbation of chronic combined type Congestive heart failure. You were treated with intravenous Lasix to help reduce the amount of fluid in your body. You breathing and swelling improved. Cardiology was consulted and an Echocardiogram of your heart was completed. You are being discharged to home today. Continue taking your medications as above. Follow up with your Primary Care Provider within 1 week. Current Hospital Diet Patient's current hospital diet: AHA Diet (Heart Healthy) Discharge Diet Recommended Diet: AHA Diet (Heart Healthy) Procedures Procedures Performed: Echocardiogram Pending Studies Studies pending at discharge: no Laboratory Results Last 24 Hours Test 11/06/16 17:40 11/07/16 05:00 Sodium Level 139 mmol/L 142 mmol/L Potassium Level 4.5 mmol/L 3.8 mmol/L Chloride Level 96 mmol/L 99 mmol/L Carbon Dioxide Level 31 mmol/L 34 mmol/L Anion Gap 12.0 mmol/L 9.0 mmol/L Blood Urea Nitrogen 28 mg/dl 22 mg/dl Creatinine 1.20 mg/dl 0.83 mg/dl Est Creatinine Clear Calc Drug Dose 40.2 ml/min 58.0 ml/min Estimated GFR () 55.3 86.4 Estimated GFR (Non- 47.7 74.5 BUN/Creatinine Ratio 23.3 26.6 Random Glucose 163 mg/dl 72 mg/dl Calcium Level 8.7 mg/dl 8.5 mg/dl Total Creatine Kinase 34 U/L Creatine Kinase MB 0.9 ng/ml Creatine Kinase MB Ratio 2.6 Troponin I < 0.015 ng/ml White Blood Count 5.61 K/uL Red Blood Count 3.86 M/uL Hemoglobin 12.2 g/dL Hematocrit 36.7 % Mean Corpuscular Volume 95.1 fL Mean Corpuscular Hemoglobin 31.6 pg Mean Corpuscular Hemoglobin Concent 33.2 g/dl Platelet Count 202 K/uL Mean Platelet Volume 9.7 fL Neutrophils (%) (Auto) 65.4 % Lymphocytes (%) (Auto) 18.5 % Monocytes (%) (Auto) 12.7 % Eosinophils (%) (Auto) 2.3 % Basophils (%) (Auto) 0.7 % Neutrophils # (Auto) 3.67 K/uL Lymphocytes # (Auto) 1.04 K/uL Monocytes # (Auto) 0.71 K/uL Eosinophils # (Auto) 0.13 K/uL Basophils # (Auto) 0.04 K/uL RDW Standard Deviation 52.0 fL RDW Coefficient of Variation 15.1 % Immature Granulocyte % (Auto) 0.4 % Immature Granulocyte # (Auto) 0.02 K/uL Prothrombin Time 12.3 SECONDS Prothromb Time International Ratio 1.1 Activated Partial Thromboplast Time 25.4 SECONDS Partial Thromboplastin Ratio 1.0 Magnesium Level 2.3 mg/dl Medical Emergencies . Who to Call and When: Medical Emergencies: If at any time you feel your situation is an emergency, please call 911 immediately. . Non-Emergent Contact Non-Emergency issues call your: Primary Care Provider Call Non-Emergent contact if: you have a fever, your pain is not controlled You develop chest pain, shortness of breath, increased swelling of your legs, palpitations, flutter in your chest, or if you have other concerns about your health. . Past History Medical & Surgical History: (1) Congestive heart failure . "Provider Documentation" section prepared by Ludy Rowan. VTE Core Measure Inpt VTE Proph given/why not?: TPool Stockings, SCD's
--- NOTE | 2016-11-07 14:12 | Discharge Summary ---
Discharge Summary Admission Date: Nov 05, 2016 at 23:52 Discharge Date: Nov 07, 2016 Principal Diagnosis: Acute exacerbation of CHF Problems/Secondary Diagnoses: ELI, R pleural effusion, shortness of breath Procedures: CXR 11/05/16 IMPRESSION: 1. Cardiomegaly with evidence of congestive failure. 2. Moderate right pleural effusion with associated right basilar consolidation. This is similar to several prior examinations and may be chronic. Correlate clinically for evidence of a superimposed infectious or inflammatory pneumonitis. 3. The left lung is grossly clear noting a large calcified pleural plaque. Echocardiogram 11/07/16 Consultations: Cardiology Medication Reconciliation Continued Medications: Flecainide (Tambocor) 50 Mg Tab 50 MG PO TID, TAB Furosemide (Lasix) 40 Mg Tab 40 MG PO BID, TAB Metoprolol Succinate (Metoprolol Succinate ER) 25 Mg Tabcr 25 MG PO DAILY Oxygen (Oxygen) Gas 2 LITERS NA CONTINOUS Referrals At Discharge Follow up Referrals: Clinical Academic Allergist Referral - Within 1-2 Weeks with Travis Garcia M.D. Physician Referral - Within 1 Week with Adriana Saini M.D. Discharge Exam The patient was seen and examined this morning. Pt reports her breathing is improved. She is doing well today and anticipating discharge. She denies chest pain, pressure or tightness. Pt admits to some nasal congestion which is new. She normally uses a humidifier at home, and this room has hot air blowing out of the vent beside her bed. She does have humidified oxygen on currently. She reports congestion improved once she was up and out of bed. She has no other complaints today. Review of Systems: Constitutional: No chills, No fever, No sweats ENT: No nasal symptoms, No sore throat, No tinnitus, No unusual epistaxis Respiratory: No cough, No dyspnea at rest, No dyspnea on exertion, No shortness of breath, No sputum, No wheezing Cardiovascular: No chest pain, No orthopnea, No palpitations Abdomen: No constipation, No diarrhea, No nausea, No pain, No vomiting Musculoskeletal: No calf pain, No joint pain Genitourinary - Female: No dysuria Neurologic: No numbness/tingling, No weakness Integumentary: No itch, No rash Physical Exam: General Appearance: WD/WN, no apparent distress Eyes: PERRL, EOMI ENT: TMs normal, pharynx normal Neck: no JVD Respiratory/Chest: no respiratory distress, no accessory muscle use, + pertinent finding (Diminished breath sounds at right base. No adventitious breath sounds appreciated. ) Cardiovascular: regular rate, rhythm, no murmur, normal peripheral pulses Abdomen / GI: normal bowel sounds, non tender, soft Extremities: no calf tenderness, + pedal edema (1+ pitting edema in BLE, improved since yesterday) Neurologic/Psychiatric: alert, normal mood/affect, oriented x 3 Skin: normal color, warm/dry Hospital Course H&P per Dr. Nieves Source: patient, spouse The patient is a 66-year-old female who presents to the emergency department with complaint of fluid building up in her legs and chest, with shortness of breath, that began 1 week prior to arrival. She reports that IV Lasix usually works for her, and requested that in the ED upon arrival. She does have a history of CHF, and is chronically on 2 L of oxygen at home. She denies any recent dietary change such as increased sodium. PE: The patient is awake, well-developed and adequately nourished, alert and oriented 3, normocephalic and atraumatic, lying in bed and in no acute distress. HEENT--PERRL, EOMI, mucous membranes moist, and oropharynx normal. Neck--supple, no JVD or bruits, thyroid normal, trachea midline, no adenopathy. Heart--normal S1 and S2, no extra beats, no murmurs, rubs or gallops. Lungs--crackles at the bases to one third up bilaterally, no respiratory distress, no accessory muscle use. Abdomen--normal bowel sounds and soft, nontender and nondistended, no hernias or masses, no organomegaly. Extremities--no cyanosis, clubbing. There is bilateral 2-3+ pitting edema. There are good distal pulses b/l. Dermatologic--normal skin turgor, normal color, warm and dry, no abnormal lymph nodes, no rash. Neurologic--cranial nerves II through XII grossly intact, motor and sensory examination normal. Rheumatologic--normal range of motion, nontender, muscles and joints. Psychiatric--normal affect. Hospital Course This is a 66 yo F with PMHx of CHF, with complaint of fluid building up in her legs and chest, with shortness of breath, that began 1 week prior to arrival Acute on Chronic CHF exacerbation, unknown if systolic or diastolic - NT-Pro-BNP was elevated at 7125 at time of admission last evening - Received 40 mg IV lasix in the ED, continue with 40 mg BID PO - ECHO ordered and completed:although not officially read at this time cardiology report notes no significant difference from the previous echo. - Troponin and CKMB x 3 sets all negative - Strict I/Os, with good outs overnight. - Daily weights - Continue flecainide 50 mg TID - Cont metoprolol succinate ER 25 mg - Dopplers BLE pending - CXR 11/05/16 IMPRESSION: 1. Cardiomegaly with evidence of congestive failure. 2. Moderate right pleural effusion with associated right basilar consolidation. This is similar to several prior examinations and may be chronic. Correlate clinically for evidence of a superimposed infectious or inflammatory pneumonitis. 3. The left lung is grossly clear noting a large calcified pleural plaque. ELI - Secondary to volume overload- likely will improve with gentle diuresis - Baseline Cr. =0.9 in Sep 2016 - Received Lasix 40 x 1 in the ED initially, then was switched to oral - Cont Lasix 40 mg PO BID R pleural effusion with basilar consolidation - Pleural effusion likely to improve with diuresis, monitor - can consider repeat CXR if the patient gets worse - her sx are improved at this point. CODE STATUS: FULL CODE Disposition: Discharge to home today. Total Time Spent: Greater than 30 minutes This includes examination of the patient, discharge planning, medication reconciliation, and communication with other providers. Discharge Instructions Please refer to the electronic Patient Visit Report (Discharge Instructions) for additional information. Follow-Up Follow up with your Primary Care Provider within 1 week. Additional Copies To Adriana Saini M.D.
--- NOTE | 2016-11-07 17:16 | ECHOCARDIOGRAM REPORT ---
*NOTICE TO RECEIVING REPUBLICAN AGENCY This information is strictly Confidential and protected under [place] law. [place] law prohibits you from making any further disclosure of this information unless further disclosure is expressly permitted by the written consent of the person to whom it pertains or is authorized by law. A general authorization for the release of medical or other information is not sufficient for this purpose. Hospital accepts no responsibility if the information is made available to any other person, INCLUDING THE PATIENT. Interpretation Summary * Name: MIRIAN MCRAE Study Date: 11/06/2016 01:43 PM BP: 102/66 mmHg * Patient Location: C.2T\S\S229\S\2 HR: 75 * : 1950 (M/d/yyyy) Gender: Female Height: 60 in * Age: 66 yrs Ethnicity: CA Weight: 146 lb * Ordering Physician: Travis Garcia * Referring Physician: Adriana Saini * Performed By: Dea Cotto RDCS * * Reason For Study: CHF * BSA: 1.6 m2 * History: CHF * Severe right ventricular systolic dysfunction, severe right ventricular dilatation, severe right atrial dilatation. * Right ventricular pressure/volume overload. * Severe pulmonary hypertension. * Cor pulmonale. * Normal left ventricular systolic function. * Moderate tricuspid regurgitation. * Trace mitral and aortic regurgitation. * -- Conclusions -- * Aortic valve sclerosis mild, without significant aortic valvular stenosis. Procedure Details * A contrast injection of Definity was performed to improve assessment of LV function. * Contrast was injected into an intravenous site in the left arm. * One vial of Definity ultrasound contrast was diluted in normal saline to a total volume of 10 ml. A total of '1' ml of solution was administered during imaging. * Lot # [id number] of Definity utilized for procedure. * Expiration date 1 APR 07. * The attending nurse who injected the contrast agent was ERIKA SIMON RN. Left Ventricle * The left ventricle is normal in size. * There is normal left ventricular wall thickness. * Ejection Fraction = 55-60%. * Flattened septum is consistent with RV pressure/volume overload. Right Ventricle * The right ventricle is moderate to severely dilated. * The right ventricular systolic function is severely reduced. Atria * The left atrial size is normal. * The right atrium is severely dilated. Mitral Valve * The mitral valve is normal. * There is trace mitral regurgitation. Tricuspid Valve * The tricuspid valve is normal. * There is moderate tricuspid regurgitation. * Right ventricular systolic pressure is elevated at >60mmHg. Aortic Valve * The aortic valve opens well. * The aortic valve is trileaflet. * Aortic valve sclerosis mild, without significant aortic valvular stenosis. * Aortic stenosis is absent. * Trace aortic regurgitation. Pulmonic Valve * The pulmonic valve is not well visualized. * There is no significant pulmonary regurgitation. Great Vessels * The aortic root is normal size. Pericardium/Pleural * There is no pericardial effusion. Great Vessels * The inferior vena cava is moderately dilated. MMode 2D Measurements and Calculations IVSd 0.93 cm IVSs 1.2 cm LVIDd 3.6 cm LVIDs 2.3 cm LVPWd 1.1 cm LVPWs 1.2 cm IVS/LVPW 0.86 FS 35.3 % EDV(Teich) 54.8 ml ESV(Teich) 18.9 ml EF(Teich) 65.6 % EDV(cubed) 47.1 ml ESV(cubed) 12.8 ml EF(cubed) 72.9 % % IVS thick 32.2 % % LVPW thick 13.7 % LV mass(C)d 109.5 grams LV mass(C)dI 67.1 grams/m\S\2 LV mass(C)s 81.9 grams LV mass(C)sI 50.2 grams/m\S\2 SV(Teich) 35.9 ml SI(Teich) 22.0 ml/m\S\2 SV(cubed) 34.3 ml SI(cubed) 21.0 ml/m\S\2 Ao root diam 3.1 cm Ao root area 7.4 cm\S\2 LA dimension 2.4 cm LA/Ao 0.79 LVAd ap4 17.7 cm\S\2 LVLd ap4 6.6 cm EDV(MOD-sp4) 40.3 ml EDV(sp4-el) 40.0 ml LVAs ap4 12.1 cm\S\2 LVLs ap4 5.8 cm ESV(MOD-sp4) 20.7 ml ESV(sp4-el) 21.4 ml EF(MOD-sp4) 48.7 % EF(sp4-el) 46.6 % LVAd ap2 17.6 cm\S\2 LVLd ap2 6.0 cm EDV(MOD-sp2) 46.1 ml EDV(sp2-el) 43.7 ml LVAs ap2 12.8 cm\S\2 LVLs ap2 5.3 cm ESV(MOD-sp2) 27.2 ml ESV(sp2-el) 26.1 ml EF(MOD-sp2) 41.0 % EF(sp2-el) 40.4 % LVLd %diff -100 % EDV(MOD-bp) 44.7 ml LVLs %diff -9.70 % ESV(MOD-bp) 24.5 ml EF(MOD-bp) 45.2 % SV(MOD-sp4) 19.7 ml SI(MOD-sp4) 12.1 ml/m\S\2 SV(MOD-sp2) 18.9 ml SI(MOD-sp2) 11.6 ml/m\S\2 SV(MOD-bp) 20.2 ml SI(MOD-bp) 12.4 ml/m\S\2 SV(sp4-el) 18.6 ml SI(sp4-el) 11.4 ml/m\S\2 SV(sp2-el) 17.6 ml SI(sp2-el) 10.8 ml/m\S\2 Doppler Measurements and Calculations MV E max oleksandr 64.5 cm/sec MV A max oleksandr 61.9 cm/sec MV E/A 1.0 MV dec time 0.25 sec Ao V2 max 100.1 cm/sec Ao max PG 4.0 mmHg Ao max PG (full) 2.7 mmHg LV V1 max PG 1.4 mmHg LV V1 max 58.1 cm/sec TR max oleksandr 464.2 cm/sec
--- NOTE | 2016-11-09 05:03 | EDITING REQUIRED CODING QUERY ---
CODING QUERY To promote full compliance with coding requirements relating to patient care, provider participation is requested in all cases of bicycle rental clerk uncertainty. Please assist us with the question(s) below: Dear Dr. Eduardo, Medical Coders are not allowed to code using the abbreviation "ELI" as it isn't recognized as an official abbreviation. Please clarify "ELI" below. Medical documentation: ELI - Secondary to volume overload- likely will improve with gentle diuresis - Baseline Cr. =0.9 in Sep 2016 - Received Lasix 40 x 1 in the ED initially, then was switched to oral - Cont Lasix 40 mg PO BID Coding Question(s): ELI? ( x ) Acute Kidney Injury ( ) Acute Renal Failure ( ) Acute Renal Insufficiency ( ) Other: Please Explain Physician's Response(s): Thank you your time. Zenaida Haynes [facility] Principal Diagnosis: "_that condition established after study, to be chiefly responsible for occasioning the admission of the patient to the hospital for care." Co-Existing Principal Diagnosis: "_when two or more diagnoses equally meet the criteria for principal diagnosis as determined by the circumstances of admission, diagnostic work up, and/or therapy provided, and the Alphabetic Index, Tabular List, or another coding guideline does not provide sequencing direction, any one of the diagnoses may be sequenced first." "When the physician has documented what appears to be a current diagnosis in the body of the record, but has not included the diagnosis in the final diagnostic statement, the physician should be asked whether the diagnosis should be added." (Source [facility] 2 QTR90. p3-4)
[2017-03-11] MEDS ORDERED: FRS/40 PO (08:49)
[2017-03-11] MEDS ORDERED: FLEC50TA20 PO (14:35)
[2017-03-11] MEDS ORDERED: OXGN (14:48)
== END 2016-11-07 14:00 | disposition home or self-care (01) | DRG 292 ==
LOC: ENRESERVDT → ENRESERVTM → C.EDB 19:28 → C.2T 23:52
PROVIDERS: ADMIT Hospitalist; ATTEND Hospitalist
DX: I50.9 Heart failure, unspecified (principal); N17.9 Acute kidney failure, unspecified; J90 Pleural effusion, not elsewhere classified; I47.1 Supraventricular tachycardia; E87.70 Fluid overload, unspecified; R09.02 Hypoxemia; I27.2 Other secondary pulmonary hypertension; R91.1 Solitary pulmonary nodule; Z99.81 Dependence on supplemental oxygen

== ENCOUNTER 2016-11-16 05:01 | Emergency (ER) | payer OTHER ==
[~2016-11-16] VITALS: Ht 152.4 cm; Wt 68.5 kg
[2016-11-16 05:06] VITALS: TEMP 36.8; Ht 152.4 cm; Wt 68.5 kg
[2016-11-16 05:17] VITALS: O2SAT 95
[2016-11-16] MEDS ORDERED: ALBUT/IPRATROP 3MG/0.5MG NEB 3 ML VIAL INH STA (05:36)
[2016-11-16] MEDS ORDERED: FUROSEMIDE 40 MG/4 ML VIAL IV STA (05:40)
[2016-11-16 06:10] LABS: BASO % 0.3 %; BASO ABS # 0.02 K/uL (0-0.2); COMPLETE YES; EOS % 1.5 %; HEMATOCRIT 37.7 % (37-47); IG% 0.3 %; LYMPH % 12.3 %; MEAN CELL VOLUME 94.7 fL (80-100); MEAN CORPUSCULAR HEMOGLOBIN 31.4 pg (25-34); MEAN CORPUSCULAR HGB CONC 33.2 g/dl (32-36); MEAN PLATELET VOLUME 9.1 fL (7.4-10.4); MONO % 9.6 %; PLATELET COUNT 223 K/uL (130-400); RED BLOOD COUNT 3.98 M/uL (4.2-5.4)
--- NOTE | 2016-11-16 06:10 | EMERGENCY ROOM VISIT NOTE ---
History Report prepared by Barb: Arlin Haywood Under the Supervision of: Dr. Angela Walker M.D. First contact with patient: 05:14 Chief Complaint: CONGESTION Stated Complaint: BRONCHIAL COUGH,CHEST CONGESTION Nursing Triage Summary: Patient presents to ED for evaluation of chest congestion, dry cough, and hypoxia that began Sunday. Patient recently d/c from here after a week long stay for "fluid." Normally wears 2L O2 at all times. History of Present Illness The patient is a 66 year old female who presents to the Emergency Room with complaints of worsening chest congestion for the past 6 days. She reports dry cough and shortness of breath. She denies any chest pain. The patient is on Lasix. She notes increased swelling to her lower extremities. She was recently discharged from the hospital after a week-long stay for "fluid." She saw her PCP 3 days ago for her new symptoms and was started on an antibiotic. Her symptoms were not improving so they changed her antibiotic yesterday. She is on 2L of O2 all the time. Source of History: patient Onset: 6 days ago Position: chest Quality: other (congestion) Timing: worsening Modifying Factors (Relieving): oxygen Associated Symptoms: + SOB, No chest pain Note: Pt notes increased swelling to lower extremities. Review of Systems See HPI for pertinent positives & negatives. A total of 10 systems reviewed and were otherwise negative. Past Medical & Surgical Medical Problems: (1) chf exac, pulm HTN, EKG changes Family History FH: atrial fibrillation MOTHER FH: stroke MOTHER, Onset:79 Social History Smoking Status: Never Smoker Drug Use: none Marital Status: Housing Status: lives with family Occupation Status: retired, other Current/Historical Medications Scheduled Flecainide (Tambocor), 50 MG PO TID Furosemide (Lasix), 40 MG PO BID Metoprolol Succinate (Metoprolol Succinate ER), 25 MG PO DAILY Oxygen (Oxygen), 2 LITERS NA CONTINOUS Scheduled PRN Albuterol Sulf (Proventil 0.083% 2.5MG/3ML), 2.5 MG INH every 4 hours PRN for Cough Allergies Coded Allergies: No Known Allergies (Unverified , 02/10/14) Physical Exam Vital Signs Date Time Temp Pulse Resp B/P Pulse Ox O2 Delivery O2 Flow Rate FiO2 11/16/16 07:15 78 22 110/72 92 Nasal Cannula 4.0 11/16/16 06:30 78 22 105/71 96 Nasal Cannula 4.0 11/16/16 06:03 78 11/16/16 05:17 95 Nasal Cannula 4.0 11/16/16 05:17 86 Nasal Cannula 2.5 11/16/16 05:06 36.8 78 18 109/72 89 Nasal Cannula 2.5 Physical Exam Vital signs reviewed. General: Well-appearing 66-year-old female, in no significant distress. On n/c oxygen HEENT: No scleral icterus, PERRLA, neck supple. Atraumatic. Cardiovascular: Regular rate and rhythm, no extra sounds. Pulmonary: Diminished breath sounds bilaterally with low air movement, faint scattered wheezes, normal work of breathing. Moist cough. Abdomen: Soft, nontender, nondistended, positive bowel sounds. Musculoskeletal: Atraumatic, 2+ pitting edema to the bilateral lower extremities distally. Neurologic: Patient awake alert and oriented x 3 Skin: Warm, dry, no rash Medical Decision & Procedures ER Provider Diagnostic Interpretation: Chest x-ray as interpreted by myself reveals intraparenchymal densities, left middle lung field calcification, large right pleural effusion, no significant change from previous. Left shoulder replacement and monitor leads in place. Laboratory Results 11/16/16 06:00 Red Blood Count 3.98, Mean Corpuscular Volume 94.7, Mean Corpuscular Hemoglobin 31.4, Mean Corpuscular Hemoglobin Concent 33.2, Mean Platelet Volume 9.1, Neutrophils (%) (Auto) 76.0, Lymphocytes (%) (Auto) 12.3, Monocytes (%) (Auto) 9.6, Eosinophils (%) (Auto) 1.5, Basophils (%) (Auto) 0.3, Neutrophils # (Auto) 5.55, Lymphocytes # (Auto) 0.90, Monocytes # (Auto) 0.70, Eosinophils # (Auto) 0.11, Basophils # (Auto) 0.02 11/16/16 06:00 Test 11/16/16 05:57 11/16/16 06:00 11/16/16 06:14 Bedside Troponin I 0.000 ng/ml (0-0.045) EZ-Vhj-V-Type Natriuretic Peptide 5665 pg/ml (0-900) White Blood Count 7.30 K/uL (4.8-10.8) Red Blood Count 3.98 M/uL (4.2-5.4) Hemoglobin 12.5 g/dL (12.0-16.0) Hematocrit 37.7 % (37-47) Mean Corpuscular Volume 94.7 fL (80-100) Mean Corpuscular Hemoglobin 31.4 pg (25-34) Mean Corpuscular Hemoglobin Concent 33.2 g/dl (32-36) Platelet Count 223 K/uL (130-400) Mean Platelet Volume 9.1 fL (7.4-10.4) Neutrophils (%) (Auto) 76.0 % Lymphocytes (%) (Auto) 12.3 % Monocytes (%) (Auto) 9.6 % Eosinophils (%) (Auto) 1.5 % Basophils (%) (Auto) 0.3 % Neutrophils # (Auto) 5.55 K/uL (1.4-6.5) Lymphocytes # (Auto) 0.90 K/uL (1.2-3.4) Monocytes # (Auto) 0.70 K/uL (0.11-0.59) Eosinophils # (Auto) 0.11 K/uL (0-0.5) Basophils # (Auto) 0.02 K/uL (0-0.2) RDW Standard Deviation 51.1 fL (36.4-46.3) RDW Coefficient of Variation 14.5 % (11.5-14.5) Immature Granulocyte % (Auto) 0.3 % Immature Granulocyte # (Auto) 0.02 K/uL (0.00-0.02) Anion Gap 7.0 mmol/L (3-11) Est Creatinine Clear Calc Drug Dose 62.9 ml/min Estimated GFR () 93.1 Estimated GFR (Non- 80.3 BUN/Creatinine Ratio 19.7 (10-20) Calcium Level 8.6 mg/dl (8.5-10.1) Magnesium Level 2.1 mg/dl (1.8-2.4) Total Bilirubin 0.5 mg/dl (0.2-1) Direct Bilirubin 0.2 mg/dl (0-0.2) Aspartate Amino Transf (AST/SGOT) 22 U/L (15-37) Alanine Aminotransferase (ALT/SGPT) 26 U/L (12-78) Alkaline Phosphatase 68 U/L (45-117) Total Creatine Kinase 100 U/L (26-192) Creatine Kinase MB 1.3 ng/ml (0.5-3.6) Creatine Kinase MB Ratio 1.3 (0-3.0) Total Protein 7.6 gm/dl (6.4-8.2) Albumin 3.1 gm/dl (3.4-5.0) Influenza Type A (RT-PCR) Neg for Influ A (NEG) Influenza Type B (RT-PCR) Neg for Influ B (NEG) Laboratory results per my review. Medications Administered Medications (Trade) Dose Ordered Sig/Yannick Route Start Time Stop Time Status Last Admin Dose Admin Albuterol/ Ipratropium (Duoneb) 3 ml NOW STAT INH 11/16/16 05:36 11/16/16 05:39 DC 11/16/16 06:01 3 ML Furosemide (Lasix Inj) 40 mg NOW STAT IV 11/16/16 05:40 11/16/16 05:41 DC 11/16/16 06:02 40 MG ECG Indication: SOB/dyspnea Rate (beats per minute): 74 Rhythm: normal sinus Findings: nonspecific-ST abn, other (right axis deviation, right ventricular hypertrophy) Comparison ECG Date: 11/05/16 Change: no significant change ED Course 0530: Past medical records reviewed. The patient was evaluated in room B10. A complete history and physical examination was performed. 0536: Duoneb 3 ml INH 0540: Lasix 40 mg IV 0649: I reassessed the patient at this time. She is feeling better and resting comfortably. I discussed the results and treatment plan with the patient. I answered all pertaining questions that she had. She expressed understanding and verbalized agreement. The patient will be discharged home. Medical Decision Differential diagnosis: Etiologies such as infections, reactive airway disease, pneumonia, pneumothorax , COPD, CHF, cardiac ischemia, pulmonary embolism, musculoskeletal, gastrointestinal, as well as others were entertained. This pt was evaluated and appeared to be in no distress. IV access was obtained and lab work was drawn. CXR reveals congestive changes and persistent pleural effusion. Pt was given IV lasix 40 mg. EKG reveals no significant changes, no acute ischemia. Lab work reveals neg cardiac enzymes. Pt was reevaluated and had diuresed in the ED. She was advised to increase her Lasix to 60 mg BID for 2 days and then continue her 40 mg BID dosing. She will f/u with her physician this week for reevaluation and return to the ED for worsening of symptoms or any medical concerns. Impression Primary Impression: Congestive heart failure Additional Impressions: Recurrent right pleural effusion Reactive airway disease Scribe Attestation The scribe's documentation has been prepared under my direction and personally reviewed by me in its entirety. I confirm that the note above accurately reflects all work, treatment, procedures, and medical decision making performed by me. Departure Information Dispostion Home / Self-Care Prescriptions Albuterol Sulf (PROVENTIL 0.083% 2.5MG/3ML) 2.5 Mg/3 Ml Nebu 2.5 MG INH every 4 hours Y for Cough, #1 BOX Prov: Angela Walker M.D. 11/16/16 Referrals Adriana Saini M.D. (PCP) Forms HOME CARE DOCUMENTATION FORM, IMPORTANT VISIT INFORMATION Patient Instructions [facility] Additional Instructions Diagnosis: Congestive heart failure, bronchitis, wheezing Increase your Lasix to 60 mg twice daily for 2 days. Continue doxycycline as prescribed. Albuterol nebulizer every 4 hours as needed for wheezing/cough. Follow-up with your primary care physician within the next several days for reevaluation. Return to the ER for worsening of symptoms or any medical concerns. Problem Qualifiers Primary Impression: Congestive heart failure Congestive heart failure type: unspecified congestive heart failure type Congestive heart failure chronicity: acute Qualified Codes: I50.9 - Heart failure, unspecified Additional Impressions: Reactive airway disease Asthma severity: mild intermittent Asthma complication type: with acute exacerbation Qualified Codes: J45.21 - Mild intermittent asthma with (acute) exacerbation
[2016-11-16 06:44] LABS: BUN/CREATININE RATIO 19.7 (10-20); CALCIUM 8.6 mg/dl (8.5-10.1); CREATININE 0.78 mg/dl (0.60-1.20); MAGNESIUM 2.1 mg/dl (1.8-2.4); POTASSIUM 3.5 mmol/L (3.5-5.1)
[2016-11-16 06:49] LABS: CKMB/CK RATIO 1.3 (0-3.0)
[2016-11-16 07:15] VITALS: BP 110/72; PULSE 78; O2SAT 92
[2016-11-16] MEDS ORDERED: ALBINS/ INH (07:23)
--- NOTE | 2016-11-16 07:44 | DIAGNOSTIC IMAGING REPORT ---
CHEST ONE VIEW PORTABLE CLINICAL HISTORY: Cough. Hypoxia. COMPARISON STUDY: Chest radiograph November 05, 2016. FINDINGS: Left shoulder arthroplasty is incidentally noted. Left pleural calcification is chronic. Cardiomediastinal silhouette is stable. There is no pneumothorax. A moderate right pleural effusion with associated right basilar opacity is unchanged. There is pleural vascular congestion with possible mild pulmonary edema. This is also unchanged. IMPRESSION: 1. No change in appearance of the chest. Stable moderate right pleural effusion with right basilar opacity which may reflect atelectasis or consolidation. 2. Pulmonary vascular congestion with suspected mild pulmonary edema. Electronically signed by: Ajay Chang M.D. 11/16/2016 7:43 AM Dictated Date/Time: 11/16/2016 7:40 AM
[2016-11-16 07:54] LABS: INFLUENZA A PCR Neg for Influ A (NEG); INFLUENZA B PCR Neg for Influ B (NEG)
[2017-03-11] MEDS ORDERED: FRS/40 PO (08:49)
[2017-03-11] MEDS ORDERED: FLEC50TA20 PO (14:35)
[2017-03-11] MEDS ORDERED: OXGN (14:48)
== END 2016-11-16 07:31 | disposition home or self-care (01) ==
LOC: C.EDB 05:02
DX: I50.9 Heart failure, unspecified (principal); J90 Pleural effusion, not elsewhere classified; J45.21 Mild intermittent asthma with (acute) exacerbation; Z99.81 Dependence on supplemental oxygen; Z79.899 Other long term (current) drug therapy; Z82.49 Family history of ischemic heart disease and other diseases of the circulatory system

== ENCOUNTER 2017-03-11 19:32 | Emergency (ER) | payer OTHER ==
[~2017-03-11] VITALS: Ht 152.4 cm; Wt 68.5 kg
[~2017-03-11 19:32] MED LIST changes: +ALBINS/ INH; +FLEC50TA20 PO; +FRS/40 PO; -METO25TA56 PO; +OXGN
[2017-03-11 19:36] VITALS: Ht 152.4 cm; Wt 68.5 kg
--- NOTE | 2017-03-11 20:00 | EMERGENCY ROOM VISIT NOTE ---
History Report prepared by Barb: Darnell Leger Under the Supervision of: Dr. Jose Santiago M.D. First contact with patient: 19:48 Chief Complaint: EDEMA TO EXTREMITY Stated Complaint: FLUID OVERLOAD History of Present Illness The patient is a 66 year old female who presents to the Emergency Room with complaints of edema which has worsened today. She has a history of CHF and states she has felt increasingly short of breath and like she is "swelling up all over" for the past few days. She uses 2.5 Liters of Oxygen at home, which provides minimal relief. The patient denies any abdominal pain, chest pain, or fevers. She admits to an occasional feeling of "fullness" in her abdomen, for which she takes TUMS. She has a history of a right sided pleural effusion which has been drained in the past, but keeps returning. She takes 60 mg Lasix twice a day and took an extra 40 mg today at noon, but reports no change in symptoms. Source of History: patient Onset: earlier today Position: other (global) Quality: other (swelling) Timing: worsening Associated Symptoms: + SOB, No abdominal pain, No chest pain, No fevers Review of Systems See HPI for pertinent positives & negatives. A total of 10 systems reviewed and were otherwise negative. Past Medical & Surgical Medical Problems: (1) chf exac, pulm HTN, EKG changes Family History FH: atrial fibrillation MOTHER FH: stroke MOTHER, Onset:79 Social History Smoking Status: Never Smoker Drug Use: none Marital Status: Housing Status: lives with family Occupation Status: retired, other Current/Historical Medications Scheduled Flecainide (Tambocor), 50 MG PO TID Furosemide (Lasix), 60 MG PO BID Metoprolol Succinate (Metoprolol Succinate ER), 25 MG PO DAILY Oxygen (Oxygen), 2.5 LITERS NA CONTINOUS Allergies Coded Allergies: No Known Allergies (Unverified , 02/10/14) Physical Exam Vital Signs Date Time Temp Pulse Resp B/P Pulse Ox O2 Delivery O2 Flow Rate FiO2 03/11/17 21:50 36.7 73 18 112/70 94 03/11/17 21:24 73 18 97/74 94 03/11/17 19:36 36.7 80 20 106/76 91 Nasal Cannula 3.0 Physical Exam GENERAL: Patient is well appearing and in no acute distress. HEENT: No acute trauma, normocephalic atraumatic, mucous membranes moist, no nasal congestion, no scleral icterus. NECK: No stridor, no adenopathy, no meningismus, trachea is midline. LUNGS: Mild shortness of breath. No dyspnea. No wheeze, no rhonchi. HEART: Regular rate and rhythm. No murmurs, rubs, gallops appreciated. ABDOMEN: Mild edema to abdomen. Soft, nontender, bowel sounds positive, no masses appreciated, no peritonitis. BACK: Mild edema to lower back. No midline tenderness, no CVA tenderness EXTREMITIES: 3+ edema bilaterally. Normal motion all extremities, no cyanosis. NEUROLOGIC: Alert and oriented, no acute motor or sensory deficits, no focal weakness, cranial nerves grossly intact. SKIN: No rash, no jaundice, no diaphoresis. Medical Decision & Procedures ER Provider Diagnostic Interpretation: This X-Ray was reviewed and interpreted by myself and the radiologist. CHEST ONE VIEW PORTABLE IMPRESSION: 1. Slight improvement in the mild pulmonary edema and small right pleural effusion. 2. No change in the right basilar densities. This may represent atelectasis or pneumonia. Electronically signed by: Omar Dodd M.D. 03/11/2017 8:31 PM Laboratory Results 03/11/17 20:20 Red Blood Count 3.97, Mean Corpuscular Volume 98.0, Mean Corpuscular Hemoglobin 32.5, Mean Corpuscular Hemoglobin Concent 33.2, Mean Platelet Volume 9.1, Neutrophils (%) (Auto) 69.0, Lymphocytes (%) (Auto) 16.1, Monocytes (%) (Auto) 12.8, Eosinophils (%) (Auto) 1.4, Basophils (%) (Auto) 0.5, Neutrophils # (Auto ) 4.32, Lymphocytes # (Auto) 1.01, Monocytes # (Auto) 0.80, Eosinophils # (Auto ) 0.09, Basophils # (Auto) 0.03 03/11/17 20:20 Test 03/11/17 20:20 White Blood Count 6.26 K/uL (4.8-10.8) Red Blood Count 3.97 M/uL (4.2-5.4) Hemoglobin 12.9 g/dL (12.0-16.0) Hematocrit 38.9 % (37-47) Mean Corpuscular Volume 98.0 fL (80-100) Mean Corpuscular Hemoglobin 32.5 pg (25-34) Mean Corpuscular Hemoglobin Concent 33.2 g/dl (32-36) Platelet Count 205 K/uL (130-400) Mean Platelet Volume 9.1 fL (7.4-10.4) Neutrophils (%) (Auto) 69.0 % Lymphocytes (%) (Auto) 16.1 % Monocytes (%) (Auto) 12.8 % Eosinophils (%) (Auto) 1.4 % Basophils (%) (Auto) 0.5 % Neutrophils # (Auto) 4.32 K/uL (1.4-6.5) Lymphocytes # (Auto) 1.01 K/uL (1.2-3.4) Monocytes # (Auto) 0.80 K/uL (0.11-0.59) Eosinophils # (Auto) 0.09 K/uL (0-0.5) Basophils # (Auto) 0.03 K/uL (0-0.2) RDW Standard Deviation 55.6 fL (36.4-46.3) RDW Coefficient of Variation 15.3 % (11.5-14.5) Immature Granulocyte % (Auto) 0.2 % Immature Granulocyte # (Auto) 0.01 K/uL (0.00-0.02) Anion Gap 3.0 mmol/L (3-11) Est Creatinine Clear Calc Drug Dose 40.9 ml/min Estimated GFR () 55.3 Estimated GFR (Non- 47.7 BUN/Creatinine Ratio 21.3 (10-20) Calcium Level 8.3 mg/dl (8.5-10.1) Troponin I < 0.015 ng/ml (0-0.045) Pro-B-Type Natriuretic Peptide 44255 pg/ml (0-900) Laboratory results as reviewed by me. Medications Administered Medications (Trade) Dose Ordered Sig/Yannick Route Start Time Stop Time Status Last Admin Dose Admin Furosemide (Lasix Inj) 40 mg NOW STAT IV 03/11/17 20:53 03/11/17 20:54 DC 03/11/17 20:53 40 MG ECG Indication: SOB/dyspnea Rate (beats per minute): 73 Rhythm: normal sinus Findings: T-wave inversion (Anterolateral), no ectopy Change: no significant change (Anterolateral T-wave inversions are identical to old EKG from October 2016) ED Course 2044: The patient was evaluated in room C7. A complete history and physical exam was performed. 2052: Lasix 40 mg IV. 2099: I reevaluated the patient. She would like to try going home, and states she has an appointment tomorrow morning with her primary care physician. I discussed her results and discharge instructions and she verbalized complete understanding and agreement. Medical Decision Differential: Infectious, Reactive Airway Disease, Pneumonia, Pneumothorax, COPD , CHF, ACS, Pulmonary Embolism, MSK, GI, Dissection, amongst other etiologies entertained. 66 yr old female arrives with complaint of shortness of breath and edema. Long history of CHF. O2 sats mildly low though not in 80s on 3 L which she can use at home. CXR with CHF findings consistent with examination. No acute renal failure nor evidence of acute infection. Patient is not interested in staying in hospital. Did make clear that I would be happy to have hospitalist evaluate her but both she and wish to go home. Note previously doing well with single dose IV Lasix thus will try this again. Aware of symptoms requiring return. Stable and comfortable at discharge. Impression Primary Impression: Acute congestive heart failure Scribe Attestation The scribe's documentation has been prepared under my direction and personally reviewed by me in its entirety. I confirm that the note above accurately reflects all work, treatment, procedures, and medical decision making performed by me. Departure Information Dispostion Home / Self-Care Patient Instructions Congestive Heart Failure -[facility], [facility] Problem Qualifiers Primary Impression: Acute congestive heart failure Congestive heart failure type: unspecified congestive heart failure type Qualified Codes: I50.9 - Heart failure, unspecified
[2017-03-11] MEDS ORDERED: TPRSR/25 PO (20:19)
[2017-03-11 20:28] LABS: BASO % 0.5 %; BASO ABS # 0.03 K/uL (0-0.2); COMPLETE YES; EOS % 1.4 %; HEMATOCRIT 38.9 % (37-47); IG% 0.2 %; LYMPH % 16.1 %; LYMPH ABS # 1.01 K/uL (1.2-3.4); MEAN CORPUSCULAR HEMOGLOBIN 32.5 pg (25-34); MEAN CORPUSCULAR HGB CONC 33.2 g/dl (32-36); MEAN PLATELET VOLUME 9.1 fL (7.4-10.4); MONO % 12.8 %; PLATELET COUNT 205 K/uL (130-400); RED BLOOD COUNT 3.97 M/uL (4.2-5.4); WHITE BLOOD COUNT 6.26 K/uL (4.8-10.8)
--- NOTE | 2017-03-11 20:33 | DIAGNOSTIC IMAGING REPORT ---
CHEST ONE VIEW PORTABLE HISTORY: Short of breath. COMPARISON: Chest 11/16/2016. FINDINGS: The heart remains mildly enlarged. Small right pleural effusion has slightly improved. Right basilar densities persist. Diffuse interstitial vascular thickening consistent with mild pulmonary edema. This is slightly improved. Left pleural calcified plaques remain unchanged. IMPRESSION: 1. Slight improvement in the mild pulmonary edema and small right pleural effusion. 2. No change in the right basilar densities. This may represent atelectasis or pneumonia. Electronically signed by: Omar Dodd M.D. 03/11/2017 8:31 PM Dictated Date/Time: 03/11/2017 8:30 PM
[2017-03-11 20:45] LABS: BLOOD UREA NITROGEN 26 mg/dl (7-18); BUN/CREATININE RATIO 21.3 (10-20); CALCIUM 8.3 mg/dl (8.5-10.1); CARBON DIOXIDE 36 mmol/L (21-32); CHLORIDE 101 mmol/L (98-107); GLUCOSE 113 mg/dl (70-99); SODIUM 140 mmol/L (136-145)
[2017-03-11] MEDS ORDERED: FUROSEMIDE 40 MG/4 ML VIAL IV STA (20:53)
[2017-03-11 21:50] VITALS: BP 112/70; PULSE 73; TEMP 36.7; O2SAT 94
== END 2017-03-11 21:51 | disposition home or self-care (01) ==
LOC: C.EDB 19:35 → C.EDC 21:51
DX: I50.9 Heart failure, unspecified (principal); I27.2 Other secondary pulmonary hypertension; Z79.899 Other long term (current) drug therapy; Z82.49 Family history of ischemic heart disease and other diseases of the circulatory system